=== PATIENT | male | born 1995 | race Two or more races ===

== ENCOUNTER 2020-11-01 03:19 | Emergency (ER) | payer SELFPAY ==
[~2020-11-01] VITALS: Ht 180.3 cm; Wt 59.0 kg
[2020-11-01 03:30] VITALS: BP 111/78
== END 2020-11-01 06:20 ==
LOC: ER 03:19
DX: S09.8XXA Other specified injuries of head, initial encounter (principal); R51.9 Headache, unspecified; Z02.89 Encounter for other administrative examinations; V49.49XA Driver injured in collision with other motor vehicles in traffic accident, initial encounter; Y93.89 Activity, other specified; Y92.488 Other paved roadways as the place of occurrence of the external cause; Y99.8 Other external cause status
CPT/HCPCS: 70450